=== PATIENT | male | born 1990 | race Caucasian/White ===

== ENCOUNTER 2017-02-17 14:35 | Emergency (ER) | payer SELFPAY ==
[2017-02-17 14:36] VITALS: BMI 28.7
[2017-02-17 15:08] VITALS: RESP 19; TEMP 98; O2SAT 99
[2017-02-17] MEDS ORDERED: Naproxen 550 mg Tab PO STA (15:16)
--- NOTE | 2017-02-17 15:19 | ED PDOC ---
Arrival/HPI - General Chief Complaint: Lower Extremity Problem/Injury Time Seen by Provider: 02/17/17 15:11 Historian: Patient - History of Present Illness Narrative History of Present Illness (Text): 02/17/17 15:17 Patient reports injuring his right foot when getting out of the shower 4 days ago and since then has had intermittent pain to the lateral and mostly the plantar aspect of the right foot, worse when he walks or puts weight on the affected foot. Patient adds that he had a history of right ankle fracture 2 years ago, denies any ankle pain or swelling however. Otherwise: (-) other injury, (-) numbness. PMD Michelle Past Medical History - Provider Review Nursing Documentation Reviewed: Yes - Infectious Disease Hx of Infectious Diseases: None - Cardiac Hx Cardiac Disorders: No - Pulmonary Hx Respiratory Disorders: No - Neurological Hx Neurological Disorder: No - HEENT Hx HEENT Disorder: Yes Other/Comment: fracture to bone in face from fall - Renal Hx Renal Disorder: No - Endocrine/Metabolic Hx Endocrine Disorders: No - Hematological/Oncological Hx Blood Disorders: No Hx Blood Transfusions: No Hx Blood Transfusion Reaction: No - Integumentary Hx Dermatological Disorder: No - Musculoskeletal/Rheumatological Hx Musculoskeletal Disorders: Yes Hx Falls: Yes - Gastrointestinal Hx Gastrointestinal Disorders: No - Genitourinary/Gynecological Hx Genitourinary Disorders: No - Psychiatric Hx Psychophysiologic Disorder: No Hx Substance Use: No - Surgical History Other/Comment: right ankle - Anesthesia Hx Anesthesia: Yes Hx Anesthesia Reactions: No Hx Malignant Hyperthermia: No Family/Social History - Physician Review Nursing Documentation Reviewed: Yes Family/Social History: No Known Family HX Smoking Status: Heavy Smoker > 10 Cigarettes Daily Hx Alcohol Use: Yes Frequency of alcohol use: Socially Hx Substance Use: No Allergies/Home Meds Allergies/Adverse Reactions: Allergies No Known Allergies Allergy (Verified 02/17/17 15:08) Review of Systems - Review of Systems Constitutional: Normal. absent: Fatigue, Weight Change, Fevers, Night Sweats Musculoskeletal: Normal, Arthralgias. absent: Back Pain, Neck Pain, Joint Swelling, Myalgias Skin: Normal. absent: Rash, Pruritis, Skin Lesions Physical Exam - Physical Exam Narrative Physical Exam (Text): 02/17/17 15:19 GENERAL APPEARANCE: Patient is awake, alert, oriented x 3, in mild painful distress. Patient arrived to the ER ambulatory. SKIN: Warm, dry, (-) skin leasions or rashes. LOWER EXTREMITY: (+) Tenderness, (-) swelling, (-) ecchymosis of the plantar aspect of the right foot most on the fifth metatarsal. (-) crepitus, (-) deformity. Tendon function intact. (-) distal neurovascular deficit. (+) 2 point discrimination. Remainder of foot, digits and ankle: (-) injury except. Vital Signs Temp Pulse Resp BP Pulse Ox 02/17/17 15:03 98 F 98 H 19 137/94 H 99 Medical Decision Making ED Course and Treatment: 02/17/17 15:20 27 yo M complaining of right foot pain for the past 4 days. X-ray right foot ordered. Patient given naproxen for pain. To rule out fracture, likely plantar fasciitis. XR R foot: no fracture, no dislocation, as read by PA Patient advised that official radiology read of XR is still pending and will call the patient if there is any discrepancy within 24 hours. X-ray results discussed with the patient. Based on history, exam and diagnostic results plan will be for outpatient follow-up with PMD or referral provided. Patient states he fully agrees with and understands discharge instructions. States that he agrees with the plan and disposition. Verbalized and repeated discharge instructions and plan. I have given the patient opportunity to ask any additional questions. Follow up with primary care physician / referral physician provided in 1-2 days without fail. Advised to take medication as prescribed. Return to the emergency room at any time for any new or worsening symptoms. - RAD Interpretation Radiology Orders: 02/17/17 15:15 FOOT RIGHT 3 VIEWS ROUTINE [RAD] Stat - Medication Orders Current Medication Orders: Discontinued Medications Naproxen (Anaprox Ds) 550 mg PO ONCE STA Stop: 02/17/17 15:17 Last Admin: 02/17/17 15:50 Dose: 550 MG - PA / TEST CAR DRIVER / Resident Statement MD/DO has reviewed & agrees with the documentation as recorded. Disposition/Present on Arrival - Present on Arrival Any Indicators Present on Arrival: No History of DVT/PE: No History of Uncontrolled Diabetes: No Urinary Catheter: No History of Decub. Ulcer: No History Surgical Site Infection Following: None - Disposition Have Diagnosis and Disposition been Completed?: Yes Diagnosis: Foot pain, right, Plantar fasciitis Disposition: HOME/ ROUTINE Disposition Time: 16:51 Patient Plan: Discharge Condition: GOOD Discharge Instructions (ExitCare): Plantar Fasciitis (ED) Print Language: TURKMEN Additional Instructions: Thank you for letting us take care of you today. You were treated for right foot pain, plantar fasciitis. The emergency medical care you received today was directed at your acute symptoms. If you were prescribed any medication, please fill it and take as directed. It may take several days for your symptoms to resolve. Return to the Emergency Department if your symptoms worsen, do not improve, or if you have any other problems. Please contact your doctor in 2 days for re-evaluation and follow up / or call one of the physicians/clinics you have been referred to that are listed on the Patient Visit Information form that is included in your discharge packet. Bring any paperwork you were given at discharge with you along with any medications you are taking to your follow up visit. Our treatment cannot replace ongoing medical care by a primary care provider (PCP) outside of the emergency department. Thank you for allowing the [facility] team to be part of your care today. If you had an X-Ray : A Radiologist will review the ED reading if any change in treatment is needed we will contact you. Prescriptions: Naproxen 500 mg PO BID #30 tab Referrals: Christine Santacruz DPM [Staff Provider] - Follow up with primary Forms: WORK NOTE
--- NOTE | 2017-02-17 17:06 | RAD ---
PROCEDURE: Right foot 02/17/2017. HISTORY: pain COMPARISON: Comparison made with the right ankle dated 08/01/2015. FINDINGS: BONES: No evidence acute displaced fracture nor dislocation there are no cortical destructive changes. There has been ORIF previously noted fracture distal fibula and dislocated of distal tibia with respect to the talus. Interval placement of a long segment fixation plate which is attached to the lateral fibula by multiple screws. Note that the longest fixation screw that extends into the tibia is broken proximally. . Visualized portions of the heart or otherwise appears intact Note made of a small elliptical shaped corticated bony density within the anterior soft tissues adjacent to the anterior superior talus. JOINTS: Minor degenerate changes anterior tibiotalar articulation SOFT TISSUES: Soft tissues appear grossly unremarkable OTHER FINDINGS: None. IMPRESSION: Status post ORIF previously noted fracture dislocation right ankle as above. . Note that the longest of these of these fixation screws which extends into the tibia is broken proximally No evidence of acute displaced fracture nor dislocation.
[2017-02-17 17:09] VITALS: BP 120/59; PULSE 75
== END 2017-02-17 17:10 | disposition home or self-care (01) ==
LOC: ED 14:35
DX: M72.2 Plantar fascial fibromatosis (principal); M79.671 Pain in right foot

== ENCOUNTER 2018-01-27 14:26 | Emergency (ER) | payer SELFPAY ==
[2018-01-27 14:30] VITALS: BMI 29.2
[2018-01-27 14:33] VITALS: RESP 18; O2SAT 96
[2018-01-27 16:51] VITALS: BP 158/99; PULSE 90; TEMP 98.3
--- NOTE | 2018-01-27 17:18 | ED PDOC ---
Arrival/HPI - General Chief Complaint: Abnormal Skin Integrity Time Seen by Provider: 01/27/18 14:41 - History of Present Illness Narrative History of Present Illness (Text): 01/27/18 17:15 28 year old male presents to the Emergency department complaining of left lower extremity swelling and redness for 1 month. Patient has not been evaluated for this complaint yet. Patient denies any numbness and pain to area, trauma, fever , chills, chest pain, shortness of breath, nausea, vomiting, diarrhea, urinary symptoms, back pain, neck pain, headache, dizziness, or any other complaints. Time/Duration: 1 week Symptom Onset: Gradual Symptom Course: Unchanged Context: Home Past Medical History - Provider Review Nursing Documentation Reviewed: Yes - Infectious Disease Hx of Infectious Diseases: None - Cardiac Hx Cardiac Disorders: No - Pulmonary Hx Respiratory Disorders: No - Neurological Hx Neurological Disorder: No - HEENT Hx HEENT Disorder: Yes Other/Comment: fracture to bone in face from fall - Renal Hx Renal Disorder: No - Endocrine/Metabolic Hx Endocrine Disorders: No - Hematological/Oncological Hx Blood Disorders: No Hx Blood Transfusions: No Hx Blood Transfusion Reaction: No - Integumentary Hx Dermatological Disorder: No - Musculoskeletal/Rheumatological Hx Musculoskeletal Disorders: Yes Hx Falls: Yes - Gastrointestinal Hx Gastrointestinal Disorders: No - Genitourinary/Gynecological Hx Genitourinary Disorders: No - Psychiatric Hx Psychophysiologic Disorder: No Hx Substance Use: No - Surgical History Other/Comment: right ankle - Anesthesia Hx Anesthesia: Yes Hx Anesthesia Reactions: No Hx Malignant Hyperthermia: No Family/Social History - Physician Review Nursing Documentation Reviewed: Yes Family/Social History: Unknown Family HX Smoking Status: Heavy Smoker > 10 Cigarettes Daily Hx Alcohol Use: Yes Frequency of alcohol use: Socially Hx Substance Use: No Allergies/Home Meds Allergies/Adverse Reactions: Allergies No Known Allergies Allergy (Verified 02/17/17 15:08) Review of Systems - Physician Review All systems were reviewed & negative as marked: Yes - Review of Systems Constitutional: absent: Fevers, Night Sweats Respiratory: absent: SOB Cardiovascular: absent: Chest Pain Gastrointestinal: absent: Diarrhea, Nausea, Vomiting Genitourinary Male: absent: Dysuria Musculoskeletal: Other (left lower extremity swelling and redness). absent: Back Pain, Neck Pain Neurological: absent: Headache, Dizziness Physical Exam Vital Signs Reviewed: Yes Vital Signs Temp Pulse Resp BP Pulse Ox 01/27/18 16:50 98.3 F 90 18 158/99 H 96 01/27/18 14:30 98.4 F 95 H 18 155/94 H 96 Temperature: Afebrile Blood Pressure: Hypertensive Pulse: Tachycardic Respiratory Rate: Normal Appearance: Positive for: Well-Appearing, Non-Toxic, Comfortable Pain Distress: None Mental Status: Positive for: Alert and Oriented X 3 - Systems Exam Head: Present: Atraumatic, Normocephalic Pupils: Present: PERRL Extroacular Muscles: Present: EOMI Conjunctiva: Present: Normal Mouth: Present: Moist Mucous Membranes Neck: Present: Normal Range of Motion Respiratory/Chest: Present: Clear to Auscultation, Good Air Exchange. No: Respiratory Distress, Accessory Muscle Use Cardiovascular: Present: Regular Rate and Rhythm, Normal S1, S2. No: Murmurs Abdomen: Present: Normal Bowel Sounds. No: Tenderness, Distention, Peritoneal Signs Back: Present: Normal Inspection Upper Extremity: Present: Normal Inspection. No: Cyanosis, Edema Lower Extremity: Present: CALF TENDERNESS (minimal), Capillary Refill < 2 s, Other (hyperpigmentation) Neurological: Present: GCS=15, CN II-XII Intact, Speech Normal Skin: Present: Warm, Dry, Normal Color. No: Rashes Psychiatric: Present: Alert, Oriented x 3, Normal Insight, Normal Concentration Medical Decision Making ED Course and Treatment: 01/27/18 17:20 Impression: 28 year old male presents to the Emergency department complaining of left lower extremity swelling and redness for 1 month. Plan: -- Left lower extremity US -- Reassess and disposition Progress Notes: US called; results are negative for DVT but positive for for superficial phlebitis. - RAD Interpretation Radiology Orders: 01/27/18 14:54 DUPLEX LOWER EXTRM VEIN LEFT [US] Stat - Scribe Statement The provider has reviewed the documentation as recorded by the Scribe Abilio Amador All medical record entries made by the Scribe were at my direction and personally dictated by me. I have reviewed the chart and agree that the record accurately reflects my personal performance of the history, physical exam, medical decision making, and the department course for this patient. I have also personally directed, reviewed, and agree with the discharge instructions and disposition. Disposition/Present on Arrival - Present on Arrival Any Indicators Present on Arrival: No History of DVT/PE: No History of Uncontrolled Diabetes: No Urinary Catheter: No History of Decub. Ulcer: No History Surgical Site Infection Following: None - Disposition Have Diagnosis and Disposition been Completed?: Yes Diagnosis: Thrombophlebitis Disposition: HOME/ ROUTINE Disposition Time: 15:20 Condition: GOOD Discharge Instructions (ExitCare): Superficial Phlebitis Additional Instructions: Thank you for letting us take care of you today. The emergency medical care you received today was directed at your acute symptoms. If you were prescribed any medication, please fill it and take as directed. It may take several days for your symptoms to resolve. Return to the Emergency Department if your symptoms worsen, do not improve, or if you have any other problems. Please contact your doctor or call one of the physicians/clinics you have been referred to that are listed on the Patient Visit Information form that is included in your discharge packet. Bring any paperwork you were given at discharge with you along with any medications you are taking to your follow up visit. Our treatment cannot replace ongoing medical care by a primary care provider (PCP) outside of the emergency department. Thank you for allowing the [facility] team to be part of your care today. Follow up with your primary doctor in 3-4 days for re-evaluation and further management. Prescriptions: Naproxen [Naprosyn] 500 mg PO Q12 PRN #20 tablet PRN Reason: Pain, Moderate (4-7) Referrals: Boogie Martinez DO [Staff Provider] - Follow up with primary Forms: [employer] (Albanian)
--- NOTE | 2018-01-28 09:14 | US ---
PROCEDURE: Left lower extremity venous US HISTORY: Leg pain and swelling. Evaluate for DVT. PHYSICIAN(S): Juan James MD. TECHNIQUE: Duplex sonography and color-flow Doppler with graded compression were used to evaluate the deep venous system of the left lower extremity. FINDINGS: The visualized deep venous system of the left lower extremity is sonographically normal and compressible. Normal wave forms and augmentation are seen. There is no sonographic evidence for deep venous thrombosis in the visualized segments of the left lower extremity. There is superficial thrombophlebitis noted a small left greater saphenous vein in the lower thigh and calf IMPRESSION: 1. No sonographic evidence for deep venous thrombosis in the visualized segments of the left lower extremity. 2. Left greater saphenous vein superficial thrombophlebitis
== END 2018-01-27 16:50 | disposition home or self-care (01) ==
LOC: ED 14:26
DX: I80.02 Phlebitis and thrombophlebitis of superficial vessels of left lower extremity (principal)